=== PATIENT | male | born 1950 | race Caucasian/White ===

== ENCOUNTER 2018-12-21 09:31 | Emergency (ER) | payer MEDICARE ==
[~2018-12-21] VITALS: Ht 175.3 cm; Wt 97.5 kg
[2018-12-21 09:31] VITALS: BP 109/53
--- NOTE | 2018-12-21 09:51 | ER.PDOC ---
General Chief Complaint: Requesting Medical Care Stated Complaint: LEFT ELBOW PAIN Time seen by MD: 10:00 Source: patient Exam Limitations: no limitations History of Present Illness Initial Comments POSTERIOR DISLOCATION L ELBOW, SEEN IN [facility] ER Severity/Quality: moderate Radiation: no radiation Exacerbated by: movements Relieved By: remaining still Vital Signs First Vital Signs Date Time Temp Pulse Resp B/P (MAP) Pulse Ox O2 Delivery O2 Flow Rate FiO2 12/21/18 09:31 98.2 60 17 12/21/18 09:31 94 Room Air 12/21/18 11:10 109/53 (71) Last Vital Signs Date Time Temp Pulse Resp B/P (MAP) Pulse Ox O2 Delivery O2 Flow Rate FiO2 12/21/18 11:10 98.2 60 17 109/53 (71) 94 Room Air Past Medical History Medical History: no pertinent history Family History Significant Family History: no pertinent family hx Social History Smoking: non-smoker Alcohol Use: sober Reviewed Nursing Reviewed: Vital Signs, Abn. Noted All Other Systems: Reviewed and Negative Physical Exam General Appearance: No Apparent Distress, WD/WN HEENT: PERRL/EOMI, Normal ENT Inspection, TMs Normal, Pharynx Normal Neck: Non-Tender, Full Range of Motion, Supple, Normal Inspection Respiratory: chest non-tender, lungs clear, normal breath sounds, no respiratory distress, no accessory muscle use Cardiovascular: Normal Peripheral Pulses, Regular Rate, Rhythm, No Edema, No Gallop, No JVD, No Murmur Gastrointestinal: Normal Bowel Sounds, Non Tender, Soft Extremities: Other (L ELBOW IN ARM SLING) Neurologic/Psychiatric: Sensory Deficit Skin: Normal Color, Warm/Dry Joint Reduction Joint Reduction : Joint Reduction Site: elbow (L) Conscious Sedation: Yes Progress DONE BY DR WAGNER Results/Orders Results/Orders Orders - HA KABA MD Xr Elbow Lt (12/21/18 09:43) Xr Elbow Lt (12/21/18 10:01) Propofol (Diprivan) (12/21/18 10:12) Fentanyl Citrate/Pf (Sublimaze) (12/21/18 10:17) Vital Signs Date Time Temp Pulse Resp B/P (MAP) Pulse Ox O2 Delivery O2 Flow Rate FiO2 12/21/18 11:10 98.2 60 17 109/53 (71) 94 Room Air 12/21/18 09:31 98.2 60 17 94 Room Air 12/21/18 09:31 98.2 60 17 Consult/PCP Time Consult/PCP Called: 10:00 Consult/PCP: DR WAGNER Course Vitals & review Data Vital Sign - Last 24 Hours 12/21/18 12/21/18 12/21/18 09:31 09:31 11:10 Temp 98.2 98.2 98.2 Pulse 60 60 60 Resp 17 17 17 B/P (MAP) 109/53 (71) Pulse Ox 94 94 O2 Delivery Room Air Room Air Departure Time of Disposition: 11:22 Disposition: 01 HOME, SELF-CARE Impression: Primary Impression: Elbow dislocation Condition: Improved Duration or Time Spent with Pa: 20 M HA KABA MD Dec 21, 2018 09:51
--- NOTE | 2018-12-21 10:06 | DIREP ---
PROCEDURE:XRAY ELBOW 2VWS-LT COMPARISON:None. INDICATIONS:posterior dislocation elbow l FINDINGS: BONES:No visible acute fracture. JOINTS:Lateral dislocation of the ulna and radius at the humerus. SOFT TISSUES:Normal. OTHER:Normal. CONCLUSION:Lateral elbow dislocation. Dictated by: Trey Cardona M.D. on 12/21/2018 at 10:04 AM
[2018-12-21] MEDS ORDERED: DIPRIVAN IV ONE (10:12)
[2018-12-21 10:14] VITALS: BP 145/75
--- NOTE | 2018-12-21 10:14 | NUR ---
STATUS DR WAGNER AND ANIL TORRES, SCIENTIFIC LINGUIST AT BEDSIDE FOR CLOSED REDUCTION OF LEFT ELBOW. PT PLACED ON O2 VIA NC, SUCTION AVAILABLE.
[2018-12-21] MEDS ORDERED: SUBLIMAZE ONE (10:17)
[2018-12-21 10:24] VITALS: BP 117/61
--- NOTE | 2018-12-21 10:24 | NUR ---
XRAY ASSEMBLY REPAIRER TO PT ROOM AT THIS TIME FOR POST REDUCTION XRAY.
[2018-12-21 10:34] VITALS: BP 112/49
--- NOTE | 2018-12-21 10:35 | NUR ---
STATUS PT AWAKE, ALERT AND ORIENTED AND SPEAKING WITH DR WAGNER. DR WAGNER STATES THAT PT NEEDS TO FOLLOW UP WITH AN ORTHO WHEN HE GETS HOME IN 3 WEEKS UNLESS HE HAS ISSUES AND NEEDS TO BE SEEN SOONER. PT TOLD TO LEAVE SPLINT ON, USE SLING. DR WAGNER WILL GIVE SCRIPT FOR PAIN MEDICATION.
--- NOTE | 2018-12-21 10:57 | DIREP ---
PROCEDURE:XRAY ELBOW 2VWS-LT COMPARISON:[facility], , XRAY ELBOW 2VWS-LT, 12/21/2018, 09:25 AM. INDICATIONS:POST REDUCTION FINDINGS: BONES:No fracture fragment. JOINTS:On the AP view, there is 1 cm lateral subluxation/dislocation of the proximal end of the ulna and radius with respect to the distal humerus. SOFT TISSUES:Marked soft tissue swelling surrounding the elbow. OTHER:Normal. CONCLUSION:Compared to the prior exam there has been significant reduction of previously identified lateral dislocation of the left elbow. However, there remains residual lateral subluxation/partial dislocation. Recommend close clinical follow-up and correlation. Dictated by: Dalton Yan M.D. on 12/21/2018 at 10:54 AM
--- NOTE | 2018-12-21 10:59 | NUR ---
STATUS PT SITTING UP IN BED LAUGHING AND TALKING TO ON PHONE. NO NEEDS VOICED.
[2018-12-21 11:10] VITALS: BP 109/53
--- NOTE | 2018-12-21 11:17 | HPH ---
ADMIT DATE: 12/21/2018 ER NOTE CHIEF COMPLAINT: Painful left elbow. HISTORY OF PRESENT ILLNESS: The patient is a 68-year-old right-hand dominant male who fell in a parking lot earlier this morning in [facility]. The patient suffered a closed dislocation of his left elbow. The patient apparently had a reduction done of the elbow that was very unstable and therefore, he was transferred to the [facility]. PHYSICAL EXAMINATION: Shows swelling about the left elbow. His radial pulse is 2+. He had normal flexion and extension of his fingers. The patient had normal sensation. The patient did not have any open wounds. The x-rays from [place] showed a posterolateral elbow dislocation with no fractures. ASSESSMENT: Left elbow dislocation. PLAN: The patient was given some IV Diprivan by the Anesthesia Department. The patient then had the elbow reduced with traction and manipulation. The post-reduction x-rays showed satisfactory reduction of the elbow. With the elbow in 100 degrees of flexion, he had 1+ radial pulse with normal sensation. The patient was placed in a well-padded posterior splint. He will be instructed to leave the shoulder immobilizer in place and not to remove the posterior splint. The patient lives in [facility] and was basically just passing through this area. He will be given a prescription for tramadol for the pain. He will be instructed to leave the splint in the arm sling intact. He will follow up with his doctors in his home town in 2 days when he gets back home. Prosper Forrest MD DR: COLUMBA/yvette JOB# [id number]
--- NOTE | 2018-12-21 11:36 | NUR ---
TRANSPORT CALLED TRANSPORT AT THIS TIME, [facility] WILL BE ABLE TO GIVE PT RIDE TO [facility]. WILL DOG CATCHER IN FRONT OF ER. PT NOTIFIED.
--- NOTE | 2018-12-21 11:40 | NUR ---
IV IV REMOVED FOR RIGHT AC, CATH TIP INTACT. PT TOLERATED WELL. PRESSURE HELD FOR 5 MIN.
[2018-12-21 11:51] VITALS: BP 124/63
== END 2018-12-21 11:50 | disposition home or self-care (01) ==
LOC: EDBD 09:31 → ER 09:31
DX: S53.145A Lateral dislocation of left ulnohumeral joint, initial encounter (principal); X58.XXXA Exposure to other specified factors, initial encounter; Y93.89 Activity, other specified; Y92.89 Other specified places as the place of occurrence of the external cause; Y99.8 Other external cause status
CPT/HCPCS: 24600; 73070 ×2; 99285; J3010; J3490